=== PATIENT | female | born 1950 | race Caucasian/White ===

== ENCOUNTER → 2019-01-09 | Outpatient (CLI) | payer MEDICARE, BC | END | disposition home or self-care (01) | LOC: LAB 15:30 → LAB SHORT 15:30 | DX: N39.0 Urinary tract infection, site not specified (principal) | CPT/HCPCS: 87086 ==

== ENCOUNTER 2019-03-14 03:42 | Emergency (ER) | payer MEDICARE, BC ==
[~2019-03-14] VITALS: Ht 167.6 cm; Wt 75.8 kg
[2019-03-14] MEDS ORDERED: HIGH BLOOD PRESSURE PO (04:36)
[2019-03-14] MEDS ORDERED: HYDHCL25 PO (04:40)
== END 2019-03-14 05:23 | disposition home or self-care (01) ==
LOC: ER 03:42
DX: L23.7 Allergic contact dermatitis due to plants, except food (principal); I10 Essential (primary) hypertension; Z79.899 Other long term (current) drug therapy
CPT/HCPCS: 99282; J0702; J3301

== ENCOUNTER → 2019-12-20 | Outpatient (CLI) | payer MEDICARE, BC ==
[~2019-12-20] MED LIST: HIGH BLOOD PRESSURE PO; HYDHCL25 PO
== END | disposition home or self-care (01) ==
LOC: LAB SHORT 08:14 → PLD 08:14
DX: R87.612 Low grade squamous intraepithelial lesion on cytologic smear of cervix (LGSIL) (principal); N72 Inflammatory disease of cervix uteri
CPT/HCPCS: 88305; 88342

== ENCOUNTER → 2020-01-16 | Outpatient (CLI) | payer MEDICARE, BC | LOC: LAB SHORT 08:43 → PLD 08:43 | DX: R87.612 Low grade squamous intraepithelial lesion on cytologic smear of cervix (LGSIL) (principal) | CPT/HCPCS: 88305 ==